=== PATIENT | male | born 1985 | race Caucasian/White ===

== ENCOUNTER 2017-12-05 21:52 | Emergency (ER) | payer OTHER ==
[2017-12-05 22:08] VITALS: RESP 18
[2017-12-05 23:37] LABS: Appearance,Urine Clear (Clear); Bilirubin,Urine Negative (Negative); Blood,Urine Negative (Negative); Color,Urine Yellow; Glucose,Urine (UA) Negative (Negative); Ketones,Urine Negative (Negative); Leukocyte Esterase,Urine Negative (Negative); Nitrite,Urine Negative (Negative); Protein,Urine Negative (Negative); Specific Gravity,Urine 1.022 (1.001-1.035)
--- NOTE | 2017-12-05 23:38 | ED ---
General Adult HPI - General Chief complaint: Skin/Abscess/Foreign Body Stated complaint: abscess tailbone Time Seen by Provider: 12/05/17 23:08 Source: patient, RN notes reviewed Mode of arrival: ambulatory Limitations: no limitations - History of Present Illness Initial comments: 32-year-old male presents to the emergency department with a chief complaint of gluteal abscess. Patient has a history of these and states it's been drinking. HE STATES HE STILL HAVING PAIN WHEN HE GOES TO SIT DOWN SO HE THOUGHT THAT HE SHOULD BE SEEN. THERE IS BEEN NO FEVER CHILLS. HE DENIES ANY COUGH COLD LIKE SYMPTOMS. THERE'S BEEN NO NAUSEA OR VOMITING. HE IS CURRENTLY BEING WORKED UP FOR HIS DOCTOR FOR SOME ABDOMINAL PAIN WELL. HE STATES HIS FAMILY DOES HAVE HISTORY OF KIDNEY STONES AND HAD A CAT SCAN AND THEN OUT PATIENTLY TODAY. HE DENIES ANY OTHER SYMPTOMS AT THIS TIME. PATIENT STATES HE IS OTHERWISE FEELING WELL.Patient denies any recent fever, chills, shortness of breath, chest pain, back pain, abdominal pain, nausea vomiting, numbness or tingling, dysuria or hematuria, constipation or diarrhea, headaches or visual changes, or any other current symptoms. - Related Data Home Medications Medication Instructions Recorded Confirmed Carvedilol [Carvedilol] 6.25 mg PO BID 01/22/16 12/05/17 tiZANidine HCL [Tizanidine HCl] 8 mg PO TID 01/22/16 12/05/17 traMADol HCL [Ultram] 50 mg PO BID PRN 01/22/16 12/05/17 Magnesium Oxide [Mag-Ox] 400 mg PO DAILY 12/05/17 12/05/17 Ranitidine HCl 300 mg PO DAILY 12/05/17 12/05/17 Previous Rx's Medication Instructions Recorded Sulfamethox-Tmp 800-160Mg [Bactrim 2 each PO Q12HR #56 tab 12/05/17 DS 800-160 mg] Allergies Allergy/AdvReac Type Severity Reaction Status Date / Time morphine Allergy Rash/Hives Verified 12/05/17 23:31 Review of Systems ROS Statement: Those systems with pertinent positive or pertinent negative responses have been documented in the HPI. ROS Other: All systems not noted in ROS Statement are negative. Past Medical History Past Medical History: GERD/Reflux Additional Past Medical History / Comment(s): muscular dystrophy, sleep apnea, kidney problems History of Any Multi-Drug Resistant Organisms: None Reported Past Surgical History: Adenoidectomy, Ear Surgery Past Psychological History: Anxiety Smoking Status: Current every day smoker Past Alcohol Use History: None Reported Past Drug Use History: None Reported General Exam Limitations: no limitations General appearance: alert, in no apparent distress ENT exam: Present: normal exam, mucous membranes moist Neck exam: Present: normal inspection. Absent: tenderness, meningismus, lymphadenopathy Respiratory exam: Present: normal lung sounds bilaterally. Absent: respiratory distress, wheezes, rales, rhonchi, stridor Cardiovascular Exam: Present: regular rate, normal rhythm, normal heart sounds. Absent: systolic murmur, diastolic murmur, rubs, gallop, clicks GI/Abdominal exam: Present: soft, normal bowel sounds. Absent: distended, tenderness, guarding, rebound, rigid Extremities exam: Present: normal inspection, full ROM, normal capillary refill. Absent: tenderness, pedal edema, joint swelling, calf tenderness Neurological exam: Present: alert, oriented X3, CN II-XII intact Psychiatric exam: Present: normal affect, normal mood Skin exam: Present: warm, dry, intact, other (Gluteal abscess that is actively draining at time of exam) Course Vital Signs 12/05/17 22:05 Temperature 98.2 F Pulse Rate 87 Respiratory 18 Rate Blood Pressure 136/81 O2 Sat by Pulse 99 Oximetry Medical Decision Making - Medical Decision Making 32-year-old male presents for gluteal abscess. Patient also been having this abdominal pain that he had a CAT scan done today. We did review these results. We did talk about with the patient is well. Urinalysis was reviewed. A culture was sent of the drained abscess. This time we did discuss return parameters and follow-up and all questions. He stated he understood and he is agreement this plan. All questions have been answered. At this time the patient will be discharged. - Lab Data Lab Results 12/05/17 Range/Units 23:00 Urine Color Yellow Urine Appearance Clear (Clear) Urine pH 6.0 (5.0-8.0) Ur Specific [place] 1.022 (1.001-1.035) Urine Protein Negative (Negative) Urine Glucose (UA) Negative (Negative) Urine Ketones Negative (Negative) Urine Blood Negative (Negative) Urine Nitrite Negative (Negative) Urine Bilirubin Negative (Negative) Urine Urobilinogen 2.0 (<2.0) mg/dL Ur Leukocyte Esterase Negative (Negative) Disposition Clinical Impression: Abscess, gluteal, left Disposition: HOME SELF-CARE Condition: Stable Instructions: Abscess (ED) Additional Instructions: Please use medication as discussed. Please follow up with family doctor if symptoms have not improved over the next two days. Please return to the emergency room if your symptoms increase or worsen or for any other concerns. Prescriptions: Sulfamethox-Tmp 800-160Mg [Bactrim DS 800-160 mg] 2 each PO Q12HR #56 tab Referrals: Sasha Mandujano MD [Primary Care Provider] - 1-2 days Time of Disposition: 23:39
[2017-12-05] MEDS ORDERED: SULFAMETH-TMP DS STARTER PACK 2 TAB BTL PO STA (23:39)
[2017-12-05 23:57] VITALS: BP 141/87; PULSE 102; TEMP 98.3
== END 2017-12-06 00:01 | disposition home or self-care (01) ==
LOC: EC 21:52
DX: L02.31 Cutaneous abscess of buttock (principal); R10.9 Unspecified abdominal pain; K21.9 Gastro-esophageal reflux disease without esophagitis; F17.200 Nicotine dependence, unspecified, uncomplicated; Z79.899 Other long term (current) drug therapy; Z88.5 Allergy status to narcotic agent
CPT/HCPCS: 74150; 81003; 87070; 87205; 99283

== ENCOUNTER → 2017-12-05 | Outpatient (CLI) | payer OTHER ==
--- NOTE | 2017-12-05 18:16 | CT ---
EXAMINATION TYPE: CT abdomen wo con DATE OF EXAM: 12/05/2017 COMPARISON: 01/22/2016 HISTORY: Abdominal pain CT DLP: mGycm Automated exposure control for dose reduction was used. TECHNIQUE: Helical acquisition of images was performed from the lung bases through the top of iliac crest to include entire abdomen. CONTRAST: Performed and without IV contrast. FINDINGS: Lung bases are clear. There is no pleural effusion. There is no pericardial effusion. There is slight decreased density in the liver suggestive of some fatty infiltration. Spleen and pancreas appear nor mal. Gallbladder appears normal. Bile ducts are not dilated. There is no adrenal mass. Kidneys have normal size and contour. There is no hydronephrosis. There is a faint 1 mm calcification in the anterior left kidney. There is no retroperitoneal adenopathy. There is no ascites. I see no intestinal wall thickening. Appendix appears normal. There is no sign of tyesha e air. Visualized bony structures show spondylolysis of L5 with a mild first-degree L5-S1 spondylolis thesis. 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 NORMAL APPENDIX. MILD FATTY INFILTRATI ON OF THE LIVER. THERE IS CLEARING OF THE MILD LEFT-SIDED HYDRONEPHROSIS COMPARED TO OLD EXAM. NONOBS TRUCTING FAINT LEFT RENAL CALCULUS.
== END | disposition home or self-care (01) ==
LOC: RADCTMAIN 15:09
PROVIDERS: ATTEND Internal Medicine
DX: K76.0 Fatty (change of) liver, not elsewhere classified (principal); N13.2 Hydronephrosis with renal and ureteral calculous obstruction; Z88.5 Allergy status to narcotic agent
CPT/HCPCS: 74150

== ENCOUNTER → 2018-12-07 | Outpatient (CLI) | payer OTHER ==
--- NOTE | 2018-12-07 10:10 | XR ---
EXAMINATION TYPE: XR chest 2V DATE OF EXAM: 12/07/2018 COMPARISON: Chest x-ray November 19, 2014. HISTORY: Cough. TECHNIQUE: Frontal and lateral views of the chest are obtained. FINDINGS: There is no focal air space opacity, pleural effusion, or pneumothorax seen. The cardiac silhouette size is stable and within normal limits. The osseous structures are intact. IMPRESSION: No suspicious acute pulmonary process. No significant change from prior.
== END ==
LOC: RADXRYALE 09:44
PROVIDERS: ATTEND Internal Medicine Pulmonary Disease
DX: R05 Cough (principal)
CPT/HCPCS: 71046

== ENCOUNTER → 2019-08-29 | Outpatient (CLI) | payer OTHER ==
--- NOTE | 2019-08-29 19:20 | MR ---
EXAMINATION TYPE: MR brain wo/w con DATE OF EXAM: 08/29/2019 COMPARISON: NONE HISTORY: Headache / Chronic headache disorder TECHNIQUE: Multiplanar, multisequence images of the brain and brainstem is performed without and with IV contras t, utilizing 10 mL intravenous Gadavist . FINDINGS: Diffusion weighted images demonstrate no evidence of a recent infarct or other diffusion ab normality. There is no extra-axial fluid collection or significant white matter signal abnormality. The ventricular system and cisternal spaces are normal in size and appearance. The brain volume is age appropriate. Midline structures demonstrate normal morphology. The craniocervical junction appears within normal limits. Post contrast images demonstrate no abnormal enhancement. The dural venous sinuses appear pa tent. The visualized sinuses are clear and the globes are intact. IMPRESSION: Unremarkable study.
== END | disposition home or self-care (01) ==
LOC: RADMRIMAIN 18:20
PROVIDERS: ATTEND Psychiatry & Neurology Neurology
DX: R51 Headache (principal)
CPT/HCPCS: 70553; A9585

== ENCOUNTER → 2020-05-15 | Outpatient (CLI) | payer OTHER ==
[2020-05-15 08:57] LABS: Basophils % (A) 1 %; Eosinophils # (A) 0.4 k/uL (0-0.7); Eosinophils % (A) 7 %; HCT 37.5 % (39.0-53.0); HGB 12.7 gm/dL (13.0-17.5); Lymphocytes # (A) 1.8 k/uL (1.0-4.8); Lymphocytes % (A) 28 %; MCH 29.4 pg (25.0-35.0); MCHC 33.8 g/dL (31.0-37.0); MCV 86.8 fL (80.0-100.0); Mean Platelet Volume 7.7; Monocytes # (A) 0.4 k/uL (0-1.0); Monocytes % (A) 7 %; Neutrophils # (A) 3.5 k/uL (1.3-7.7); Neutrophils % (A) 55 %; Platelet Count 232 k/uL (150-450); RBC 4.32 m/uL (4.30-5.90); RDW 12.5 % (11.5-15.5); WBC 6.3 k/uL (3.8-10.6)
[2020-05-15 16:56] LABS: African American GFR (CKD) 149.9 (60.0-200.0); Albumin 4.6 g/dL (3.80-4.90); Albumin/Globulin Ratio 2.19 (1.60-3.17); Anion Gap 8.5 mmol/L (4.00-12.00); Calcium 9.5 mg/dL (8.7-10.3); Carbon Dioxide 25.5 mmol/L (21.6-31.8); Chol/HDL Ratio 2.64; Globulin 2.1 g/dL (1.6-3.3); LDL Cholesterol,Calculated 61.4 mg/dL (0.0-131.0); Non-African American GFR(CKD) 129.3 (60.0-200.0); Potassium 4.1 mmol/L (3.5-5.5); Total Bilirubin 0.4 mg/dL (0.3-1.2); Total Protein 6.7 g/dL (6.2-8.2); VLDL Calculation 10.6 mg/dL (5.00-40.00)
[2020-05-15 19:49] LABS: Hemoglobin A1C 5.2 % (4.0-6.0)
== END | disposition home or self-care (01) ==
LOC: LABWHC1 07:45
PROVIDERS: ATTEND Internal Medicine
DX: Z00.00 Encounter for general adult medical examination without abnormal findings (principal); I10 Essential (primary) hypertension; G47.30 Sleep apnea, unspecified; Z13.1 Encounter for screening for diabetes mellitus; Z13.220 Encounter for screening for lipoid disorders
CPT/HCPCS: 36415; 80053; 80061; 83036; 84443; 85025

== ENCOUNTER → 2020-12-18 | Outpatient (CLI) | payer OTHER ==
--- NOTE | 2020-12-19 07:12 | US ---
EXAMINATION TYPE: US kidneys/renal and bladder DATE OF EXAM: 12/18/2020 COMPARISON: CT CLINICAL HISTORY: Kidney stone N20.0. Bilateral flank pain x months EXAM MEASUREMENTS: Right Kidney: 10.8 x 6.4 x 5.9 cm Left Kidney: 11.4 x 6.2 x 6.1 cm Post Void Residual Volume: patient was unable to void x 2 attempts Right Kidney: No hydronephrosis or masses seen Left Kidney: No hydronephrosis or masses seen Bladder: wnl Bilateral Jets seen: Yes Normal Post Void Residual: not assessed as patient was unable to void There is no evidence for hydronephrosis at this point in time. No nephrolithiasis is seen. No becka s are identified. The urinary bladder is anechoic. Bilateral ureteral jets are seen. IMPRESSION: 1. No hydronephrosis or nephrolithiasis.
== END | disposition home or self-care (01) ==
LOC: RADUSWWP 16:22
PROVIDERS: ATTEND Urology
DX: R10.9 Unspecified abdominal pain (principal)
CPT/HCPCS: 76770

== ENCOUNTER → 2021-01-02 | Outpatient (CLI) | payer OTHER ==
[2021-01-02 23:26] LABS: Hemoglobin A1C 5.3 % (4.0-6.0)
[2021-01-03 02:03] LABS: C Reactive Protein, High Sens 1.35 mg/L (0.000-3.000); Chol/HDL Ratio 2.54; LDL Cholesterol,Calculated 70.8 mg/dL (0.0-131.0); VLDL Calculation 12.2 mg/dL (5.00-40.00)
[2021-01-05 17:56] LABS: Large VLDL Particle Number,NMR 1.7 nmol/L (<=2.7)
== END | disposition home or self-care (01) ==
LOC: LABWHC1 13:50
PROVIDERS: ATTEND Internal Medicine Interventional Cardiology
DX: I42.8 Other cardiomyopathies (principal)
CPT/HCPCS: 36415; 80061; 82947; 83036; 83090; 83704; 83880; 86141

== ENCOUNTER 2021-01-03 22:00 | Emergency (ER) | payer OTHER ==
[2021-01-03 22:45] VITALS: PULSE 75
[2021-01-04] MEDS ORDERED: KETOROLAC 15 MG/ML 1 ML VIAL IVP STA (00:31)
[2021-01-04 01:04] LABS: Basophils # (A) 0.1 k/uL (0-0.2); Basophils % (A) 1 %; Eosinophils # (A) 0.3 k/uL (0-0.7); Eosinophils % (A) 3 %; HCT 37.8 % (39.0-53.0); HGB 12.8 gm/dL (13.0-17.5); Lymphocytes # (A) 2.4 k/uL (1.0-4.8); Lymphocytes % (A) 31 %; MCH 28.7 pg (25.0-35.0); MCHC 33.9 g/dL (31.0-37.0); MCV 84.6 fL (80.0-100.0); Mean Platelet Volume 7.7; Monocytes # (A) 0.5 k/uL (0-1.0); Monocytes % (A) 7 %; Neutrophils # (A) 4.5 k/uL (1.3-7.7); Neutrophils % (A) 56 %; Platelet Count 306 k/uL (150-450); RBC 4.47 m/uL (4.30-5.90); RDW 13.1 % (11.5-15.5)
[2021-01-04 01:15] LABS: INR 0.9 (<1.2); Partial Thromboplastin Time 24.7 sec (22.0-30.0); Prothrombin Time 10.1 sec (9.0-12.0)
[2021-01-04 01:16] LABS: ALT 131 U/L (4-49); AST 74 U/L (17-59); African American GFR (CKD) >90 (>60 ml/min/1.73 sqM); Albumin 4.3 g/dL (3.5-5.0); Alkaline Phosphatase 72 U/L (38-126); Anion Gap 7 mmol/L; Blood Urea Nitrogen 11 mg/dL (9-20); Calcium 9.6 mg/dL (8.4-10.2); Carbon Dioxide 27 mmol/L (22-30); Chloride 104 mmol/L (98-107); Glucose 97 mg/dL (74-99); Magnesium 2.1 mg/dL (1.6-2.3); Non-African American GFR(CKD) >90 (>60 ml/min/1.73 sqM); Potassium 3.9 mmol/L (3.5-5.1); Sodium 138 mmol/L (137-145); Total Bilirubin 0.4 mg/dL (0.2-1.3); Total Protein 7.2 g/dL (6.3-8.2)
--- NOTE | 2021-01-04 01:28 | XR ---
EXAM: XR Chest, 2 Views CLINICAL HISTORY: Dysrhythmia. TECHNIQUE: Frontal and lateral views of the chest. COMPARISON: 05/09/2019. FINDINGS: Lungs: The lungs are well aerated. Pleural space: Unremarkable. No pneumothorax. Heart: Cardiomediastinal silhouette unremarkable per Mediastinum: See above. Bones/joints: Osteopenia. Ribs are unremarkable. Gentle dextro scoliosis of the thoracic spine. Mild to moderate degenerative disc disease of the thoracic spine. Tubes, lines and devices: Nerve stimulator and lead wires are noted in place with their tips at the level of the superior endplate of the T8 vertebral body. IMPRESSION: 1. Osteopenia. 2. No active disease. 3. No pleural effusions.
--- NOTE | 2021-01-04 01:34 | XR ---
EXAM: XR Right Hip With Pelvis When Performed, 2 or 3 Views CLINICAL HISTORY: hip pain TECHNIQUE: Two or three views of the right hip with pelvis when performed. COMPARISON: No relevant prior studies available. FINDINGS: Bones/joints: Unremarkable. No acute fracture. No dislocation. Soft tissues: Unremarkable. IMPRESSION: Normal right hip x-rays.
[2021-01-04] MEDS ORDERED: ACET/COD 300 MG/30 MG STARTER PACK 6 TAB BTL PO STA (02:19)
--- NOTE | 2021-01-04 02:19 | ED ---
General Adult HPI - General Chief complaint: Arrhythmia/Palpitations Stated complaint: Hips,kindey, heart are acting up Time Seen by Provider: 01/03/21 23:03 Source: patient Mode of arrival: ambulatory Limitations: no limitations - History of Present Illness Initial comments: 35-year-old male patient presents to the emergency department today for multiple complaints. States that he originally was coming in for right hip pain. States he was getting out of bed and twisted wrong. States he felt like his hip popped out of place and he is now having pain surrounding the right hip and into his right groin. Denies any radiating pain down his leg. Denies numbness or tingling to the lower extremities. States the He has a history of heart failure with cardiomyopathy related to his muscular dystrophy. States that he has been having some chest pressure with palpitations for quite some time, he is scheduled for evaluation for pacemaker placement. He is also reporting urinary retention. States that he has been having issues with this for the last couple of weeks. Did see urologist whose states he has enlarged prostate started on Flomax. States that he currently is unable to urinate. Last urination was around 7 PM. Patient denies any recent rash, fever, chills, cough, shortness of breath, abdominal pain, nausea, vomiting, diarrhea, constipation, back pain, numbness, tingling, dizziness, weakness, headache, visual changes, or any other complaints. - Related Data Home Medications Medication Instructions Recorded Confirmed Carvedilol 6.25 mg PO BID 01/22/16 12/05/17 tiZANidine HCL [Tizanidine HCl] 8 mg PO TID 01/22/16 12/05/17 traMADol HCL [Ultram] 50 mg PO BID PRN 01/22/16 12/05/17 Magnesium Oxide [Mag-Ox] 400 mg PO DAILY 12/05/17 12/05/17 raNITIdine HCL [Ranitidine HCl] 300 mg PO DAILY 12/05/17 12/05/17 Previous Rx's Medication Instructions Recorded Sulfamethox-Tmp 800-160Mg [Bactrim 2 each PO Q12HR #56 tab 12/05/17 DS 800-160 mg] Allergies Allergy/AdvReac Type Severity Reaction Status Date / Time morphine Allergy Rash/Hives Verified 12/05/17 23:31 Review of Systems ROS Statement: Those systems with pertinent positive or pertinent negative responses have been documented in the HPI. ROS Other: All systems not noted in ROS Statement are negative. Past Medical History Past Medical History: GERD/Reflux Additional Past Medical History / Comment(s): muscular dystrophy, sleep apnea, kidney problems History of Any Multi-Drug Resistant Organisms: None Reported Past Surgical History: Adenoidectomy, Ear Surgery Past Psychological History: Anxiety Smoking Status: Current every day smoker Past Alcohol Use History: Abuse Past Drug Use History: Marijuana General Exam Limitations: no limitations General appearance: alert, in no apparent distress, other (This is a well- developed, well-nourished adult male patient in no acute distress. Vital signs upon presentation are temperature 97.9F, pulse 75, respirations 20, blood pressure 157/91, pulse ox 99% on room air.) Eye exam: Present: normal appearance, PERRL, EOMI. Absent: scleral icterus, conjunctival injection, periorbital swelling ENT exam: Present: normal exam, normal oropharynx, mucous membranes moist Respiratory exam: Present: normal lung sounds bilaterally. Absent: respiratory distress, wheezes, rales, rhonchi, stridor Cardiovascular Exam: Present: regular rate, normal rhythm, normal heart sounds. Absent: systolic murmur, diastolic murmur, rubs, gallop, clicks GI/Abdominal exam: Present: soft, normal bowel sounds. Absent: distended, tenderness, guarding, rebound, rigid Extremities exam: Present: normal inspection, full ROM, normal capillary refill, other (Skin to the right leg is pink, warm, dry. Cap refill less than 3 seconds. Pedal and posttibial pulses 2+.). Absent: tenderness, pedal edema, joint swelling, calf tenderness Neurological exam: Present: alert, oriented X3, CN II-XII intact Psychiatric exam: Present: normal affect, normal mood Skin exam: Present: warm, dry, intact, normal color. Absent: rash Course Vital Signs 01/03/21 01/04/21 22:41 02:35 Temperature 97.9 F 97.6 F Pulse Rate 75 Pulse Rate [ 75 Pulse Oximetery ] Respiratory 20 16 Rate Blood Pressure 157/91 Blood Pressure 125/92 [Right Arm] O2 Sat by Pulse 99 99 Oximetry EKG Findings - EKG Comments: EKG Findings:: EKG obtained at 2251 shows normal sinus rhythm with a ventricular rate of 72, KS interval 150, QRS duration 104, QTC 420, QTC 459. No evidence of ST elevation or depression. Medical Decision Making - Medical Decision Making 35-year-old male patient presents to the emergency department today for evaluation of right hip pain. He is also reporting chest pressure, palpitations, urinary retention. Physical examination is relatively unremarkable. He has full range of motion to the right hip. Neurovascular status is intact. We did do a bladder scan which showed 150 mL in his bladder. States he is unable to urinate, I offered to insert a catheter, he refused. Labs reviewed and were unremarkable. EKG was unremarkable. X-ray of the right hip and pelvis was negative. He will be discharged to follow-up with his primary care physician for recheck in 1-2 days. Return parameters were discussed in detail. He verbalizes understanding and agrees this plan. Case discussed with my attending Dr. Chavarria. - Lab Data Result diagrams: 01/04/21 00:52 01/04/21 00:52 Lab Results 01/04/21 01/04/21 01/04/21 Range/Units 00:52 00:52 00:52 WBC 8.0 (3.8-10.6) k/uL RBC 4.47 (4.30-5.90) m/uL Hgb 12.8 L (13.0-17.5) gm/dL Hct 37.8 L (39.0-53.0) % MCV 84.6 (80.0-100.0) fL MCH 28.7 (25.0-35.0) pg MCHC 33.9 (31.0-37.0) g/dL RDW 13.1 (11.5-15.5) % Plt Count 306 (150-450) k/uL MPV 7.7 Neutrophils % 56 % Lymphocytes % 31 % Monocytes % 7 % Eosinophils % 3 % Basophils % 1 % Neutrophils # 4.5 (1.3-7.7) k/uL Lymphocytes # 2.4 (1.0-4.8) k/uL Monocytes # 0.5 (0-1.0) k/uL Eosinophils # 0.3 (0-0.7) k/uL Basophils # 0.1 (0-0.2) k/uL PT 10.1 (9.0-12.0) sec INR 0.9 (<1.2) APTT 24.7 (22.0-30.0) sec Sodium 138 (137-145) mmol/L Potassium 3.9 (3.5-5.1) mmol/L Chloride 104 (98-107) mmol/L Carbon Dioxide 27 (22-30) mmol/L Anion Gap 7 mmol/L BUN 11 (9-20) mg/dL Creatinine 0.60 L (0.66-1.25) mg/dL Est GFR (CKD-EPI)AfAm >90 (>60 ml/min/1.73 sqM) Est GFR (CKD-EPI)NonAf >90 (>60 ml/min/1.73 sqM) Glucose 97 (74-99) mg/dL Calcium 9.6 (8.4-10.2) mg/dL Magnesium 2.1 (1.6-2.3) mg/dL Total Bilirubin 0.4 (0.2-1.3) mg/dL AST 74 H (17-59) U/L ALT 131 H (4-49) U/L Alkaline Phosphatase 72 (38-126) U/L Troponin I (0.000-0.034) ng/mL Total Protein 7.2 (6.3-8.2) g/dL Albumin 4.3 (3.5-5.0) g/dL 01/04/21 Range/Units 00:52 WBC (3.8-10.6) k/uL RBC (4.30-5.90) m/uL Hgb (13.0-17.5) gm/dL Hct (39.0-53.0) % MCV (80.0-100.0) fL MCH (25.0-35.0) pg MCHC (31.0-37.0) g/dL RDW (11.5-15.5) % Plt Count (150-450) k/uL MPV Neutrophils % % Lymphocytes % % Monocytes % % Eosinophils % % Basophils % % Neutrophils # (1.3-7.7) k/uL Lymphocytes # (1.0-4.8) k/uL Monocytes # (0-1.0) k/uL Eosinophils # (0-0.7) k/uL Basophils # (0-0.2) k/uL PT (9.0-12.0) sec INR (<1.2) APTT (22.0-30.0) sec Sodium (137-145) mmol/L Potassium (3.5-5.1) mmol/L Chloride (98-107) mmol/L Carbon Dioxide (22-30) mmol/L Anion Gap mmol/L BUN (9-20) mg/dL Creatinine (0.66-1.25) mg/dL Est GFR (CKD-EPI)AfAm (>60 ml/min/1.73 sqM) Est GFR (CKD-EPI)NonAf (>60 ml/min/1.73 sqM) Glucose (74-99) mg/dL Calcium (8.4-10.2) mg/dL Magnesium (1.6-2.3) mg/dL Total Bilirubin (0.2-1.3) mg/dL AST (17-59) U/L ALT (4-49) U/L Alkaline Phosphatase (38-126) U/L Troponin I <0.012 (0.000-0.034) ng/mL Total Protein (6.3-8.2) g/dL Albumin (3.5-5.0) g/dL - Radiology Data Radiology results: report reviewed, image reviewed Disposition Clinical Impression: Strain of right hip, Heart palpitations Disposition: HOME SELF-CARE Condition: Good Instructions (If sedation given, give patient instructions): Heart Palpitations (ED), Hip Pain (ED) Additional Instructions: Increase fluids. Follow up with your primary care physician. Call urologist on Tuesday. Return to the emergency department for any new, worsening, or concerning symptoms. Is patient prescribed a controlled substance at d/c from ED?: No Referrals: Caridad Burnette MD [Primary Care Provider] - 1-2 days Time of Disposition: 02:19
[2021-01-04 02:37] VITALS: BP 125/92; RESP 16; TEMP 97.6
== END 2021-01-04 02:53 | disposition home or self-care (01) ==
LOC: EC 22:00
DX: S76.011A Strain of muscle, fascia and tendon of right hip, initial encounter (principal); R00.2 Palpitations; K21.9 Gastro-esophageal reflux disease without esophagitis; G47.30 Sleep apnea, unspecified; F12.90 Cannabis use, unspecified, uncomplicated; F41.9 Anxiety disorder, unspecified; F17.200 Nicotine dependence, unspecified, uncomplicated; X50.1XXA Overexertion from prolonged static or awkward postures, initial encounter
CPT/HCPCS: 36415; 80053; 83735; 84484; 85025; 85610; 85730; 73502; 71046; 99285; 96374; J1885; 93005

== ENCOUNTER → 2021-11-12 | Outpatient (CLI) | payer OTHER ==
--- NOTE | 2021-11-12 10:05 | US ---
EXAMINATION TYPE: US liver DATE OF EXAM: 11/12/2021 COMPARISON: NONE CLINICAL HISTORY: 36-year-old male R79.89 LFT Elevation. Abnormal labs, cholecystectomy TECHNIQUE: Multiple sonographic images of the right upper quadrant are obtained. FINDINGS: EXAM MEASUREMENTS: Liver Length: 14.2 cm Gallbladder: Surgically absent CBD: 0.6 cm Right Kidney: 11.7 x 5.8 x 6.4 cm Pancreas: Most of the pancreas is visualized and shows no gross abnormal body. Liver: Echogenic with increased attenuation. No focal lesion seen. Gallbladder: Surgically absent Evidence for sonographic Matthews's sign: No CBD: Borderline caliber. Right Kidney: No hydronephrosis or masses seen IMPRESSION: 1. Borderline caliber to the bile duct at 6 mm likely due to postcholecystectomy status. Correlate wi th alkaline phosphatase and bilirubin levels. 2. Suspect mild to moderate hepatic steatosis.
== END | disposition home or self-care (01) ==
LOC: RADUSWWP 08:59
PROVIDERS: ATTEND Internal Medicine
DX: R79.89 Other specified abnormal findings of blood chemistry (principal)
CPT/HCPCS: 76705

== ENCOUNTER → 2021-11-24 | Outpatient (CLI) | payer OTHER ==
--- NOTE | 2021-11-24 21:17 | CT ---
EXAMINATION TYPE: CT thoracic spine wo con DATE OF EXAM: 11/24/2021 COMPARISON: X-ray dated 01/04/2021 HISTORY: Radiculopathy, thoracic region. CT DLP: 1307.40 mGycm Automated exposure control for dose reduction was used. TECHNIQUE: Multiplanar CT scan of the thoracic spine without IV contrast administration. FINDINGS: Preserved dorsal kyphosis. No significant anterolisthesis or retrolisthesis. No definite vertebral kourtney dy collapse or acute displaced fracture. 2 epidural electrodes are seen along the posterior aspect of the thoracic spinal canal from T7 down to L1. Tiny multilevel opposing endplate osteophytosis. Multilevel facet osteoarthropathy most evident at th e bilateral T3-4 and left T7-8 facets. Rather maintained intervertebral disc spaces. No significant t horacic disc herniation or protrusion. No bony spinal canal stenosis. Moderate left T7-8 and T8-9 bony neuroforaminal stenosis secondary to osteophytosis/facet osteoarthropathy. Bilateral lower lung lobe peripheral pulmonary reticulations, m ore on the left side, nonspecific. No paraspinal lesion. IMPRESSION: Moderate left T7-8 and T8-9 bony neuroforaminal stenosis secondary to osteophytosis/facet osteoarthro jasmina, likely compressing the left T7 and left T8 nerve roots, please correlate clinically. Other deg enerative changes of the thoracic spine and incidental findings as described above.
== END | disposition home or self-care (01) ==
LOC: RADCTMAIN 18:56
PROVIDERS: ATTEND Anesthesiology Pain Medicine
DX: M47.24 Other spondylosis with radiculopathy, thoracic region (principal); M99.72 Connective tissue and disc stenosis of intervertebral foramina of thoracic region
CPT/HCPCS: 72128

== ENCOUNTER → 2022-01-25 | Outpatient (CLI) | payer OTHER ==
--- NOTE | 2022-01-25 19:42 | CT ---
EXAMINATION TYPE: CT chest wo con DATE OF EXAM: 01/25/2022 COMPARISON: 11/24/2021 HISTORY: HR Chest. abnormal T-Spine CT 3.1.22 CT DLP: 263 mGycm. Automated Exposure Control for Dose Reduction was Utilized. TECHNIQUE: CT scan of the thorax is performed without IV contrast and with high-resolution technique . FINDINGS: LUNGS: The lungs are grossly clear, there is no concerning parenchymal mass or nodule identified. T here is no pleural effusion or pneumothorax seen. The tracheobronchial tree is patent. No significan t interlobular septal thickening. Minimal pleural based thickening posteriorly superior segment right lower lobe. MEDIASTINUM: Lack of IV contrast is noted to limit evaluation for mediastinal and especially hilar ad enopathy. There are no definitive greater than 1 cm hilar or mediastinal lymph nodes. No cardiomega ly or pericardial effusion is seen. Cardiac device with cardiac leads noted. Correlate for previous c holecystectomy. OTHER: Hypertrophic and degenerative change of the spine noted. Stimulator leads seen within the spin al canal. IMPRESSION: 1. No evidence of acute intrathoracic process. No diagnostic evidence of chronic interstitial lung di sease.
== END | disposition home or self-care (01) ==
LOC: RADCTMAIN 17:07
PROVIDERS: ATTEND Internal Medicine Pulmonary Disease
DX: R93.89 Abnormal findings on diagnostic imaging of other specified body structures (principal)
CPT/HCPCS: 71250

== ENCOUNTER 2022-06-11 17:23 | Emergency (ER) | payer OTHER ==
--- NOTE | 2022-06-11 22:43 | ED ---
Psych HPI - General Chief Complaint: Psychiatric Symptoms Stated Complaint: EPS eval Time Seen by Provider: 06/11/22 22:35 Source: patient, RN notes reviewed, old records reviewed Mode of arrival: ambulatory Limitations: no limitations - History of Present Illness Initial Comments: This is a 29-year-old male to the ER for evaluation. Patient is very depressed combination with suicidal and homicidal thoughts. MD Complaint: suicidal ideation, feels depressed, altered mental status -: unknown Associated Psychiatric Symptoms: depression, suicidal ideation, homicidal ideation, racing thoughts History of same: Yes Quality: constant, getting worse Improves With: none, medication Context: significant life stressor Associated Symptoms: denies other symptoms Treatments Prior to Arrival: placed on mental health hold If Self Harm: admits thoughts of self harm - Related Data Home Medications Medication Instructions Recorded Confirmed Albuterol Inhaler [Ventolin Hfa 2 puff INHALATION RT-Q4H PRN 06/12/22 06/12/22 Inhaler] Azelastine HCl [Astepro] 2 spr EA NOSTRIL BID 06/12/22 06/12/22 B Complex W-C No.20/Folic Acid 1 mg PO DAILY 06/12/22 06/12/22 [Renal Caps Softgel] Baclofen 20 mg PO QID@05,11,,23 06/12/22 06/12/22 Budesonide/Formoterol Fumarate 2 puff INHALATION RT-BID 06/12/22 06/12/22 [Symbicort 80-4.5 Mcg Inhaler] Diclofenac Sodium Gel [Voltaren 2 - 4 gm TOPICAL QID PRN 06/12/22 06/12/22 Gel] Dicyclomine [Bentyl] 10 mg PO TID@0500,1300,209906/12/22 06/12/22 Esomeprazole Magnesium 40 mg PO AC-BID 06/12/22 06/12/22 Famotidine [Pepcid] 20 mg PO BID 06/12/22 06/12/22 Fexofenadine HCl [Blanca Allergy] 180 mg PO BID@0500,2100 06/12/22 06/12/22 Fluticasone Nasal [place] [Flonase 2 spr EA NOSTRIL DAILY 06/12/22 06/12/22 Nasal [place]] Hydrocortisone Acetate [Anusol-Hc] 25 mg RECTAL BID PRN 06/12/22 06/12/22 Lidocaine 4% Patch 1 patch TRANSDERM DAILY 06/12/22 06/12/22 Magnesium Oxide [Mag-Ox] 400 mg PO BID@1100,2300 06/12/22 06/12/22 Mirabegron [Myrbetriq] 50 mg PO DAILY@0500 06/12/22 06/12/22 Montelukast [Singulair] 10 mg PO HS 06/12/22 06/12/22 Pregabalin [Lyrica] 150 mg PO BID 06/12/22 06/12/22 Sacubitril/Valsartan [Entresto 49 1 tab PO BID@0500,1700 06/12/22 06/12/22 mg-51 mg Tablet] Spironolactone 25 mg PO Q48H 06/12/22 06/12/22 busPIRone HCL [Buspar] 7.5 mg PO BID@0500,2100 06/12/22 06/12/22 carvediloL [Coreg] 6.25 mg PO BID@1100,2300 06/12/22 06/12/22 Allergies Allergy/AdvReac Type Severity Reaction Status Date / Time morphine Allergy Rash/Hives Verified 06/12/22 16:50 Review of Systems ROS Statement: Those systems with pertinent positive or pertinent negative responses have been documented in the HPI. ROS Other: All systems not noted in ROS Statement are negative. Past Medical History Past Medical History: GERD/Reflux Additional Past Medical History / Comment(s): muscular dystrophy, sleep apnea, kidney problems History of Any Multi-Drug Resistant Organisms: None Reported Past Surgical History: Adenoidectomy, Ear Surgery Past Psychological History: Anxiety, Depression Smoking Status: Current every day smoker Past Alcohol Use History: Abuse Past Drug Use History: Marijuana General Exam General appearance: alert, in no apparent distress Head exam: Present: atraumatic, normocephalic, normal inspection Eye exam: Present: normal appearance, PERRL, EOMI. Absent: scleral icterus, conjunctival injection, periorbital swelling ENT exam: Present: normal exam, mucous membranes moist Neck exam: Present: normal inspection. Absent: tenderness, meningismus, lymphadenopathy Respiratory exam: Present: normal lung sounds bilaterally. Absent: respiratory distress, wheezes, rales, rhonchi, stridor Cardiovascular Exam: Present: regular rate, normal rhythm, normal heart sounds. Absent: systolic murmur, diastolic murmur, rubs, gallop, clicks GI/Abdominal exam: Present: soft, normal bowel sounds. Absent: distended, tenderness, guarding, rebound, rigid Extremities exam: Present: normal inspection, full ROM, normal capillary refill. Absent: tenderness, pedal edema, joint swelling, calf tenderness Back exam: Present: normal inspection Neurological exam: Present: alert, oriented X3, CN II-XII intact Psychiatric exam: Present: normal affect, normal mood Skin exam: Present: warm, dry, intact, normal color. Absent: rash Course Vital Signs 06/11/22 06/12/22 06/12/22 18:11 09:54 11:06 Temperature 98.1 F 98.2 F Pulse Rate 73 75 71 Respiratory 18 20 16 Rate Blood Pressure 121/76 131/81 114/74 O2 Sat by Pulse 98 98 100 Oximetry - Reevaluation(s) Reevaluation #1: 06/11/22 22:46 Medical record is reviewed Reevaluation #2: 06/11/22 22:46 Medically clear for psychiatric evaluation Medical Decision Making - Medical Decision Making 37 male seen eval by psychiatry patient will be discharged home - Lab Data Result diagrams: 06/12/22 04:50 06/12/22 04:50 Lab Results 06/12/22 06/12/22 06/12/22 Range/Units 04:50 04:50 04:50 WBC 8.2 (3.8-10.6) k/uL RBC 4.31 (4.30-5.90) m/uL Hgb 13.5 (13.0-17.5) gm/dL Hct 38.1 L (39.0-53.0) % MCV 88.3 (80.0-100.0) fL MCH 31.4 (25.0-35.0) pg MCHC 35.6 (31.0-37.0) g/dL RDW 12.7 (11.5-15.5) % Plt Count 268 (150-450) k/uL MPV 7.8 Neutrophils % 64 % Lymphocytes % 24 % Monocytes % 6 % Eosinophils % 4 % Basophils % 1 % Neutrophils # 5.2 (1.3-7.7) k/uL Lymphocytes # 1.9 (1.0-4.8) k/uL Monocytes # 0.5 (0-1.0) k/uL Eosinophils # 0.3 (0-0.7) k/uL Basophils # 0.0 (0-0.2) k/uL Sodium 138 (137-145) mmol/L Potassium 3.7 (3.5-5.1) mmol/L Chloride 100 (98-107) mmol/L Carbon Dioxide 24 (22-30) mmol/L Anion Gap 14 mmol/L BUN 11 (9-20) mg/dL Creatinine 0.56 L (0.66-1.25) mg/dL Est GFR (CKD-EPI)AfAm >90 (>60 ml/min/1.73 sqM) Est GFR (CKD-EPI)NonAf >90 (>60 ml/min/1.73 sqM) Glucose 95 (74-99) mg/dL Calcium 9.9 (8.4-10.2) mg/dL Total Bilirubin 0.7 (0.2-1.3) mg/dL AST 68 H (17-59) U/L ALT 112 H (4-49) U/L Alkaline Phosphatase 65 (38-126) U/L Total Protein 7.4 (6.3-8.2) g/dL Albumin 4.7 (3.5-5.0) g/dL Urine Color Urine Appearance (Clear) Urine pH (5.0-8.0) Ur Specific [place] (1.001-1.035) Urine Protein (Negative) Urine Glucose (UA) (Negative) Urine Ketones (Negative) Urine Blood (Negative) Urine Nitrite (Negative) Urine Bilirubin (Negative) Urine Urobilinogen (<2.0) mg/dL Ur Leukocyte Esterase (Negative) Urine RBC (0-5) /hpf Urine WBC (0-5) /hpf Ur Squamous Epith Cells (0-4) /hpf Calcium Oxalate Crystal (None) /hpf Urine Mucus (None) /hpf Urine Opiates Screen (NotDetected) Ur Oxycodone Screen (NotDetected) Urine Methadone Screen (NotDetected) Ur Propoxyphene Screen (NotDetected) Ur Barbiturates Screen (NotDetected) U Tricyclic Antidepress (NotDetected) Ur Phencyclidine Scrn (NotDetected) Ur Amphetamines Screen (NotDetected) U Methamphetamines Scrn (NotDetected) U Benzodiazepines Scrn (NotDetected) Urine Cocaine Screen (NotDetected) U Marijuana (THC) Screen (NotDetected) Coronavirus (PCR) Not Detected (Not Detectd) 06/12/22 06/12/22 06/13/22 Range/Units 08:20 08:20 08:28 WBC (3.8-10.6) k/uL RBC (4.30-5.90) m/uL Hgb (13.0-17.5) gm/dL Hct (39.0-53.0) % MCV (80.0-100.0) fL MCH (25.0-35.0) pg MCHC (31.0-37.0) g/dL RDW (11.5-15.5) % Plt Count (150-450) k/uL MPV Neutrophils % % Lymphocytes % % Monocytes % % Eosinophils % % Basophils % % Neutrophils # (1.3-7.7) k/uL Lymphocytes # (1.0-4.8) k/uL Monocytes # (0-1.0) k/uL Eosinophils # (0-0.7) k/uL Basophils # (0-0.2) k/uL Sodium (137-145) mmol/L Potassium (3.5-5.1) mmol/L Chloride (98-107) mmol/L Carbon Dioxide (22-30) mmol/L Anion Gap mmol/L BUN (9-20) mg/dL Creatinine (0.66-1.25) mg/dL Est GFR (CKD-EPI)AfAm (>60 ml/min/1.73 sqM) Est GFR (CKD-EPI)NonAf (>60 ml/min/1.73 sqM) Glucose (74-99) mg/dL Calcium (8.4-10.2) mg/dL Total Bilirubin (0.2-1.3) mg/dL AST (17-59) U/L ALT (4-49) U/L Alkaline Phosphatase (38-126) U/L Total Protein (6.3-8.2) g/dL Albumin (3.5-5.0) g/dL Urine Color Yellow Urine Appearance Clear (Clear) Urine pH 6.0 (5.0-8.0) Ur Specific [place] 1.024 (1.001-1.035) Urine Protein 1+ H (Negative) Urine Glucose (UA) Negative (Negative) Urine Ketones 1+ H (Negative) Urine Blood Negative (Negative) Urine Nitrite Negative (Negative) Urine Bilirubin Negative (Negative) Urine Urobilinogen <2.0 (<2.0) mg/dL Ur Leukocyte Esterase Negative (Negative) Urine RBC 1 (0-5) /hpf Urine WBC 3 (0-5) /hpf Ur Squamous Epith Cells 1 (0-4) /hpf Calcium Oxalate Crystal Rare H (None) /hpf Urine Mucus Many H (None) /hpf Urine Opiates Screen Not Detected Not Detected (NotDetected) Ur Oxycodone Screen Not Detected Not Detected (NotDetected) Urine Methadone Screen Not Detected Not Detected (NotDetected) Ur Propoxyphene Screen Not Detected Not Detected (NotDetected) Ur Barbiturates Screen Not Detected Not Detected (NotDetected) U Tricyclic Antidepress Not Detected Not Detected (NotDetected) Ur Phencyclidine Scrn Not Detected Not Detected (NotDetected) Ur Amphetamines Screen Not Detected Not Detected (NotDetected) U Methamphetamines Scrn Not Detected Not Detected (NotDetected) U Benzodiazepines Scrn Not Detected Detected H (NotDetected) Urine Cocaine Screen Not Detected Not Detected (NotDetected) U Marijuana (THC) Screen Detected H Detected H (NotDetected) Coronavirus (PCR) (Not Detectd) Disposition Clinical Impression: Acute anxiety Disposition: HOME SELF-CARE Condition: Fair Instructions (If sedation given, give patient instructions): Mood Disorders (ED) Additional Instructions: mood disor Is patient prescribed a controlled substance at d/c from ED?: No Referrals: Nonstaff,Physician [REFERRING] - 1-2 days
[2022-06-12 05:08] LABS: Basophils % (A) 1 %; Eosinophils # (A) 0.3 k/uL (0-0.7); Eosinophils % (A) 4 %; HCT 38.1 % (39.0-53.0); HGB 13.5 gm/dL (13.0-17.5); Lymphocytes # (A) 1.9 k/uL (1.0-4.8); Lymphocytes % (A) 24 %; MCH 31.4 pg (25.0-35.0); MCHC 35.6 g/dL (31.0-37.0); MCV 88.3 fL (80.0-100.0); Mean Platelet Volume 7.8; Monocytes # (A) 0.5 k/uL (0-1.0); Monocytes % (A) 6 %; Neutrophils # (A) 5.2 k/uL (1.3-7.7); Neutrophils % (A) 64 %; Platelet Count 268 k/uL (150-450); RBC 4.31 m/uL (4.30-5.90); RDW 12.7 % (11.5-15.5); WBC 8.2 k/uL (3.8-10.6)
[2022-06-12 05:22] LABS: ALT 112 U/L (4-49); AST 68 U/L (17-59); African American GFR (CKD) >90 (>60 ml/min/1.73 sqM); Albumin 4.7 g/dL (3.5-5.0); Alkaline Phosphatase 65 U/L (38-126); Anion Gap 14 mmol/L; Blood Urea Nitrogen 11 mg/dL (9-20); Calcium 9.9 mg/dL (8.4-10.2); Carbon Dioxide 24 mmol/L (22-30); Chloride 100 mmol/L (98-107); Glucose 95 mg/dL (74-99); Non-African American GFR(CKD) >90 (>60 ml/min/1.73 sqM); Potassium 3.7 mmol/L (3.5-5.1); Sodium 138 mmol/L (137-145); Total Bilirubin 0.7 mg/dL (0.2-1.3); Total Protein 7.4 g/dL (6.3-8.2)
[2022-06-12] MEDS ORDERED: ALBUTEROL HFA INHALER INHALATION PRN (05:52)
[2022-06-12] MEDS ORDERED: busPIRone HCl 10 MG TAB PO SCH (06:00)
[2022-06-12] MEDS ORDERED: carvediloL 6.25 MG TAB PO SCH (07:30)
[2022-06-12] MEDS: busPIRone HCl 5 MG TAB PO SCH ×2 (07:51→16:15)
[2022-06-12] MEDS: FLUTICASONE 110 MCG INHALER INHALATION SCH (08:04)
[2022-06-12] MEDS: BACLOFEN 10 MG TAB PO SCH ×4 (08:04→22:32)
[2022-06-12] MEDS: AZELASTINE 137MCG/SPRAY NASAL SCH (08:05)
[2022-06-12] MEDS: LORATADINE 10 MG TAB PO SCH (08:07)
[2022-06-12] MEDS: FLUTICASONE 50MCG/SPRAY NASAL 16GM NASAL SCH (08:07)
[2022-06-12] MEDS: SACUBITRIL/VALSARTAN 49 MG-51 MG TABLET PO SCH ×2 (08:08→17:30)
[2022-06-12] MEDS: PANTOPRAZOLE 40 MG TABLET PO SCH ×2 (08:08→22:34)
[2022-06-12 08:56] LABS: Appearance,Urine Clear (Clear); Bilirubin,Urine Negative (Negative); Blood,Urine Negative (Negative); Calcium Oxalate Crystals,Urine Rare /hpf; Color,Urine Yellow; Glucose,Urine (UA) Negative (Negative); Ketones,Urine 1+ (Negative); Leukocyte Esterase,Urine Negative (Negative); Mucus,Urine Many /hpf; Nitrite,Urine Negative (Negative); Protein,Urine 1+ (Negative); RBC,Urine 1 /hpf (0-5); Specific Gravity,Urine 1.024 (1.001-1.035); Squamous Epithelial Cell,Urine 1 /hpf (0-4); Urobilinogen,Urine <2.0 mg/dL (<2.0); WBC,Urine 3 /hpf (0-5)
[2022-06-12 08:59] LABS: Amphetamine Screen,Urine Not Detected (NotDetected); Barbiturate Screen,Urine Not Detected (NotDetected); Benzodiazepines Screen,Urine Not Detected (NotDetected); Cocaine Screen,Urine Not Detected (NotDetected); Methadone Screen, Urine Not Detected (NotDetected); Opiate Screen,Urine Not Detected (NotDetected); Oxycodone Screen, Urine Not Detected (NotDetected); Phencyclidine Screen,Urine Not Detected (NotDetected); Tricyclic Antidepressant,Urine Not Detected (NotDetected); Urn Cannabinoid Scrn Detected (NotDetected)
[2022-06-12] MEDS ORDERED: SACUBITRIL/VALSARTAN 49 MG-51 MG TABLET PO SCH (09:00)
[2022-06-12] MEDS ORDERED: NON FORMULARY DRUG (Mirabegron [Myrbetriq] 50 MG Tab.Er.24h) PO SCH (09:00)
[2022-06-12] MEDS ORDERED: LORazepam 1 MG TAB PO STA (09:26)
[2022-06-12 09:56] VITALS: TEMP 98.2
[2022-06-12] MEDS: LIDOCAINE 5% PATCH TOPICAL SCH (11:03)
[2022-06-12] MEDS: carvediloL 6.25 MG TAB PO SCH ×2 (11:04→22:32)
[2022-06-12] MEDS: MAGNESIUM OXIDE 400 MG TAB PO SCH ×2 (11:04→22:31)
[2022-06-12 11:07] VITALS: BP 114/74; PULSE 71; RESP 16
[2022-06-12] MEDS: FOLIC ACID-VIT B COMPLEX-VIT C 1 CAP PO SCH (11:13)
[2022-06-12] MEDS: SPIRONOLACTONE 25 MG TAB PO SCH (13:05)
[2022-06-12] MEDS ORDERED: FAMOTIDINE 20 MG TAB PO SCH (21:00)
[2022-06-13] MEDS: FLUTICASONE 110 MCG INHALER INHALATION SCH ×2 (00:13→07:42)
[2022-06-13] MEDS: busPIRone HCl 5 MG TAB PO SCH ×3 (00:15→17:17)
[2022-06-13] MEDS: AZELASTINE 137MCG/SPRAY NASAL SCH ×2 (00:17→07:42)
[2022-06-13] MEDS ORDERED: ZOLPIDEM 5 MG TAB PO STA (00:28)
[2022-06-13] MEDS: DICYCLOMINE 20 MG TAB PO STA ×2 (00:56→00:57)
[2022-06-13] MEDS ORDERED: NON FORMULARY DRUG (Mirabegron [Myrbetriq] 50 MG Tab.Er.24h) PO SCH (05:00)
[2022-06-13] MEDS: FLUTICASONE 50MCG/SPRAY NASAL 16GM NASAL SCH (07:43)
[2022-06-13] MEDS: PANTOPRAZOLE 40 MG TABLET PO SCH (07:53)
[2022-06-13] MEDS: SACUBITRIL/VALSARTAN 49 MG-51 MG TABLET PO SCH ×2 (07:53→17:17)
[2022-06-13] MEDS: BACLOFEN 10 MG TAB PO SCH ×3 (07:54→17:17)
[2022-06-13] MEDS: LORATADINE 10 MG TAB PO SCH (07:54)
[2022-06-13 08:52] LABS: Amphetamine Screen,Urine Not Detected (NotDetected); Barbiturate Screen,Urine Not Detected (NotDetected); Benzodiazepines Screen,Urine Detected (NotDetected); Cocaine Screen,Urine Not Detected (NotDetected); Methadone Screen, Urine Not Detected (NotDetected); Opiate Screen,Urine Not Detected (NotDetected); Oxycodone Screen, Urine Not Detected (NotDetected); Phencyclidine Screen,Urine Not Detected (NotDetected); Tricyclic Antidepressant,Urine Not Detected (NotDetected); Urn Cannabinoid Scrn Detected (NotDetected)
[2022-06-13] MEDS ORDERED: PSYLLIUM HUSK 100% 6 GM PACKET PO SCH (09:00)
[2022-06-13] MEDS ORDERED: LORazepam 1 MG TAB PO STA (09:52)
[2022-06-13] MEDS ORDERED: SODIUM CHLORIDE 0.9% 1,000 ML IV ONE (11:59)
[2022-06-13] MEDS: FOLIC ACID-VIT B COMPLEX-VIT C 1 CAP PO SCH (12:00)
[2022-06-13] MEDS: LIDOCAINE 5% PATCH TOPICAL SCH (12:00)
[2022-06-13] MEDS: carvediloL 6.25 MG TAB PO SCH (12:05)
[2022-06-13] MEDS: SPIRONOLACTONE 25 MG TAB PO SCH (12:05)
[2022-06-13] MEDS: MAGNESIUM OXIDE 400 MG TAB PO SCH (12:05)
== END 2022-06-13 17:19 | disposition home or self-care (01) ==
LOC: EC 17:23
DX: F41.9 Anxiety disorder, unspecified (principal); K21.9 Gastro-esophageal reflux disease without esophagitis; F17.200 Nicotine dependence, unspecified, uncomplicated; Z20.822 Contact with and (suspected) exposure to COVID-19; Z88.6 Allergy status to analgesic agent; Z79.899 Other long term (current) drug therapy
CPT/HCPCS: 36415; 80053; 80306; 81001; 82075; 85025; 87635; 96360; 96361; 99284